=== PATIENT | male | born 1960 | race Caucasian/White ===

== ENCOUNTER → 2021-05-08 | Outpatient (CLI) | payer BC ==
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
== END | disposition home or self-care (01) ==
LOC: RADMRIMAIN 09:18
PROVIDERS: ATTEND Family Medicine
DX: M50.322 Other cervical disc degeneration at C5-C6 level (principal); M48.02 Spinal stenosis, cervical region
CPT/HCPCS: 72141

== ENCOUNTER → 2024-05-05 | Outpatient (CLI) | payer BC ==
--- NOTE | 2024-05-05 15:29 | XR ---
EXAMINATION TYPE: XR Hip Complete LT DATE OF EXAM: 05/05/2024 2:54 PM CLINICAL INDICATION: Male, 64 years old with history of M25.552 PAIN IN LEFT HIP; COMPARISON: None. TECHNIQUE: XR Hip Complete LT; hip was examined in the frontal and lateral projections FINDINGS: No evidence for acute process, joint dislocation or significant soft tissue swelling. There is cam deformity to the femoral head. Osteophyte formation of the superior acetabulum of the hip. Th ere is joint space narrowing. IMPRESSION: 1. No evidence for acute process. 2. 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
== END | disposition home or self-care (01) ==
LOC: RADXRMAIN 14:32
PROVIDERS: ATTEND Family Medicine
DX: M25.552 Pain in left hip
CPT/HCPCS: 73502